=== PATIENT | female | born 1940 | race Caucasian/White ===

== ENCOUNTER 2017-03-28 06:38 | Emergency (ER) | payer BC ==
[~2017-03-28 06:38] MED LIST: COZ50 PO; COZAAR100 MG PO; FOLIC PO; GLUCPH PO; HUMIR1 SC; KDUR20 PO; TREXALL10 MG PO; VITAMIN D31000 UNIT PO; Z300 PO; [UNRECOGNIZED DRUG - REMARK]
== END 2017-03-28 07:40 | disposition home or self-care (01) ==
LOC: ER 06:38
DX: S20.211A Contusion of right front wall of thorax, initial encounter (principal); I12.9 Hypertensive chronic kidney disease with stage 1 through stage 4 chronic kidney disease, or unspecified chronic kidney disease; N18.9 Chronic kidney disease, unspecified; E11.9 Type 2 diabetes mellitus without complications; Z95.1 Presence of aortocoronary bypass graft; W18.49XA Other slipping, tripping and stumbling without falling, initial encounter
CPT/HCPCS: 71250; 99285; A9270-GY